=== PATIENT | female | born 1940 | race Caucasian/White ===

== ENCOUNTER → 2016-11-19 | Outpatient (CLI) | payer OTHER ==
--- NOTE | 2016-11-19 13:17 | MAMMOGRAPHY REPORT ---
BILATERAL DIGITAL SCREENING MAMMOGRAM WITH CAD: 11/19/2016 CLINICAL HISTORY: Routine screening. Patient has no complaints. TECHNIQUE: Current study was also evaluated with a Computer Aided Detection (CAD) system. Bilatera l CC and MLO views were obtained. COMPARISON: Comparison is made to exams dated: 11/14/2015 mammogram, 11/12/2014 mammogram, 11/10/2013 ma mmogram, 09/24/2011 mammogram, 10/24/2012 mammogram, and 08/25/2010 mammogram - [facility]. BREAST COMPOSITION: There are scattered areas of fibroglandular density in both breasts. FINDINGS: No suspicious masses, calcifications, or areas of architectural distortion are noted in e ither breast. There has been no significant interval change compared to prior exams. Scattered bilat eral benign-appearing calcifications are not significantly changed. IMPRESSION: ACR BI-RADS CATEGORY 2: BENIGN There is no mammographic evidence of malignancy. A 1 year screening mammogram is recommended. The p atient will receive written notification of the results. Approximately 10% of breast cancers are not detected with mammography. A negative mammographic repor t should not delay biopsy if a clinically suggestive mass is present. Jo Ann Cueva M.D. ah/:11/19/2016 10:54:07 Director Park: Tammie JOEL(Janice)([place])([place]), [facility] letter sent: Normal 1/2 BI-RADS Code: ACR BI-RADS Category 2: Benign
== END | disposition home or self-care (01) ==
LOC: C.MAMM 10:24
PROVIDERS: ATTEND Family Medicine
DX: Z12.31 Encounter for screening mammogram for malignant neoplasm of breast (principal)

== ENCOUNTER → 2017-11-22 | Outpatient (CLI) | payer OTHER ==
[~2017-11-22] MED LIST: ATOR-24 PO; GLIM2TAB2 PO; INSDGI SC; LEVO175T3 PO; LISIPOW PO; METF-384 PO; SITA50TA3 PO; TRAM-10 PO
--- NOTE | 2017-11-23 15:14 | MAMMOGRAPHY REPORT ---
BILATERAL DIGITAL SCREENING MAMMOGRAM TOMOSYNTHESIS WITH CAD: 11/22/2017 CLINICAL HISTORY: Routine screening. Patient has no complaints. TECHNIQUE: Breast tomosynthesis in addition to standard 2D mammography was performed. Current study was also evaluated with a Computer Aided Detection (CAD) system. COMPARISON: Comparison is made to exams dated: 11/19/2016 mammogram, 11/14/2015 mammogram, 11/12/2014 mamm ogram, 11/10/2013 mammogram, 10/24/2012 mammogram, and 09/24/2011 mammogram - [facility] er. BREAST COMPOSITION: There are scattered areas of fibroglandular density in both breasts. FINDINGS: There is a 3.8 mm focal asymmetry versus mass in the approximate 8:00 to 9:00 middle one t hird of the left breast, for which additional targeted ultrasound and possible additional mammographi c views are recommended. There are moderate vascular calcifications in the breasts. No other suspicious mass, architectural d istortion or cluster of microcalcifications is seen. IMPRESSION: ACR BI-RADS CATEGORY 0: INCOMPLETE EVALUATION: NEED ADDITIONAL IMAGING EVALUATION The 3.8 mm focal asymmetry versus mass in the 8:00 to 9:00 left breast needs additional evaluation. The patient will be called to schedule an appointment. Approximately 10% of breast cancers are not detected with mammography. A negative mammographic report should not delay biopsy if a clinically suggestive mass is present. Courtney Muniz M.D. ay/:11/22/2017 16:07:58 Water Vessel Captain: Sindy JOEL(Janice)([place]), [facility] letter sent: Addl Imaging 0 BI-RADS Code: ACR BI-RADS Category 0: Incomplete Evaluation: Need Additional Imaging Evaluation
== END | disposition home or self-care (01) ==
LOC: C.MAMM 14:04
PROVIDERS: ATTEND Family Medicine
DX: Z12.31 Encounter for screening mammogram for malignant neoplasm of breast (principal); N64.89 Other specified disorders of breast

== ENCOUNTER → 2017-12-08 | Outpatient (CLI) | payer OTHER ==
--- NOTE | 2017-12-09 07:51 | MAMMOGRAPHY REPORT ---
ULTRASOUND OF LEFT BREAST: 12/08/2017 CLINICAL HISTORY: 77-year-old woman called back from screening mammography for a 3.8 mm focal asymmet ry versus mass in the medial left breast. COMPARISON: Comparison is made to exams dated: 11/19/2016 mammogram, 11/22/2017 mammogram, 11/14/2015 araseli mogram, 11/12/2014 mammogram, 10/24/2012 mammogram, and 09/24/2011 mammogram - [facility] er. FINDINGS: Targeted high-resolution real-time ultrasound was performed in the medial left breast. In the 9:00 axis, 4 cm from the nipple there is a circumscribed anechoic round simple cyst adjacent to a prominent tubular anechoic structure which most likely represents a cyst with adjacent ectatic duct. The round portion of this cyst measures 3.5 x 3.8 x 3.5 mm, and corresponds with the mammographic f inding. This is benign and no further workup is needed at this time. Recommend return to annual scr eening mammography schedule. IMPRESSION: ACR BI-RADS CATEGORY 2: BENIGN The 3.8 mm focal asymmetry versus mass in the medial left breast identified mammographically is thoug ht to correspond with a benign anechoic simple cyst on ultrasound. No further workup is needed at th is time. Recommend return to annual screening mammography schedule. These results and recommendations were discussed with the patient at the time of the exam. Courtney Muniz M.D. ay/:12/08/2017 17:03:21 Student Nurse: Dr. Courtney Muniz, [facility] letter sent: Normal 1/2 BI-RADS Code: ACR BI-RADS Category 2: Benign
== END | disposition home or self-care (01) ==
LOC: C.MAMM 12:46
PROVIDERS: ATTEND Family Medicine
DX: R92.2 Inconclusive mammogram (principal)